=== PATIENT | female | born 1980 | race Caucasian/White ===

== ENCOUNTER 2020-09-01 17:22 | Emergency (ER) | payer MEDICAID ==
[~2020-09-01] VITALS: Ht 177.8 cm; Wt 74.8 kg
[2020-09-01] MEDS ORDERED: CEPHALEXIN500 MG PO (21:06)
== END 2020-09-01 21:15 | disposition home or self-care (01) ==
LOC: ED 17:22
DX: N39.0 Urinary tract infection, site not specified (principal); R65.10 Systemic inflammatory response syndrome (SIRS) of non-infectious origin without acute organ dysfunction; F17.200 Nicotine dependence, unspecified, uncomplicated; Z88.0 Allergy status to penicillin
CPT/HCPCS: 71045; 74177; 80053; 81001; 83605; 83690; 83735; 84703; 85025; 87040; 87077; 87088; 87186; 96375; 96376; 99284-25; J0696; J1885; J2405; J7030; J7121; Q9967